=== PATIENT | female | born 1990 | race Caucasian/White ===

== ENCOUNTER 2017-01-18 20:54 | Emergency (ER) | payer SELFPAY ==
[2017-01-18] MEDS ORDERED: NS 0.9% 1000 ML* 1,000 ML IV SCH (22:30)
[2017-01-18 23:05] LABS: Hematocrit 38 % (35-47); Hemoglobin 12.6 g/dl (12.0-16.0); Mean Corpuscular HGB Conc 34 g/dl (31-36); Mean Corpuscular Hemoglobin 25 pg (27-31); Mean Corpuscular Volume 75 fL (80-97); Mean Platelet Volume 9 um3 (7.4-10.4); Red Blood Count 5.03 10^6/ul (4.0-5.4); Red Cell Distribution Width 14 % (10.5-15); White Blood Count 9.7 10^3/ul (3.5-10.8)
[2017-01-18 23:08] LABS: Urine Bilirubin Negative (Negative); Urine Glucose Negative (Negative); Urine Nitrite Negative (Negative)
[2017-01-18 23:10] LABS: Add Diff/Slide Review? Slide Review Added; Comments Flag Yes
[2017-01-18 23:32] LABS: Albumin 4.1 g/dL (3.2-5.2); BUN/Creatinine Ratio 14.1 (8-20); C Reactive Protein 3.9 mg/L (< 5.00); Calcium 9.5 mg/dL (8.6-10.3); EGFR African American 146.6 (>60); Globulin 3.1 g/dL (2-4); Potassium 3.5 mmol/L (3.5-5.0); Total Bilirubin 0.3 mg/dL (0.2-1.0); Total Protein 7.2 g/dL (6.4-8.9)
[2017-01-18 23:46] LABS: Microcytosis 2+
--- NOTE | 2017-01-19 03:08 | ED ---
Christina Sy Thomas, scribed for Saran Davenport MD on 01/18/17 at 2232 . GI/ HPI - HPI Summary HPI Summary: The pt is a 26 y/o F who is 6 weeks and presenting to the ED c/o suprapubic cramping, light spotting, and brown discharge that began two days ago. She denies abdominal pain and only cites a sensation of pressure. The symptoms are aggravated and alleviated by nothing. The patient has treated the symptoms with nothing [employer]. Pt additionally c/o chills, soft stools, and back pain. Pt denies dysuria, fever, and heavy BRB vaginal bleeding. She does not have a history of abdominal surgery. G=3, P=2. Her previous children were born via vaginal delivery. Her OBGYN is Dr. Vasquez in [place]. She has not yet had an appointment with Dr. Vasquez. Her is confirmed via [place] at 6 weeks 6 days. - History of Current Complaint Chief Complaint: EDOBProblems Time Seen by Provider: 01/18/17 22:01 Stated Complaint: 6 WKS PREG/CRAMPING /BLEEDING Hx Obtained From: Patient Onset/Duration: Started Days Ago - onest two days ago, Still Present Vaginal Bleeding Description: Brown Pain Intensity: 0 Location of Pain: Other - There is suprapubic pressure but no pain Associated Signs and Symptoms: Positive: Back Pain, Chills, Other: - Soft stools ; NEVATIVE: heavy BRB vaginal bleeding. Negative: Fever, Dysuria Aggravating Factor(s): Nothing Alleviating Factor(s): Nothing - Allergy/Home Medications Allergies/Adverse Reactions: Allergies Allergy/AdvReac Type Severity Reaction Status Date / Time No Known Allergies Allergy Verified 01/18/17 21:02 PMH/Surg Hx/FS Hx/Imm Hx Previously Healthy: Yes Endocrine/Hematology History: Denies: Hx Diabetes Cardiovascular History: Denies: Hx Hypertension - Surgical History Surgery Procedure, Year, and Place: Tonsillectomy Infectious Disease History: No Infectious Disease History: Denies: Traveled Outside the [place] in Last 30 Days - Family History Known Family History: Negative: Hypertension, Diabetes - Social History Alcohol Use: None Hx Substance Use: Yes Substance Use Type: Reports: Marijuana Hx Tobacco Use: Yes Smoking Status (MU): Former Smoker Review of Systems Positive: Chills. Negative: Fever Positive: Other - Suprapubic cramping, soft stools. Negative: Abdominal Pain Positive: other - Light spotting, brown discharge; NEGATIVE: heavy BRB vaginal bleeding. Negative: dysuria Positive: Other - Back pain All Other Systems Reviewed And Are Negative: Yes Physical Exam Triage Information Reviewed: Yes Vital Signs On Initial Exam: Initial Vitals Temp Pulse Resp BP Pulse Ox 98.1 F 90 16 108/71 98 01/18/17 20:55 01/18/17 20:55 01/18/17 20:55 01/18/17 20:55 01/18/17 20:55 Vital Signs Reviewed: Yes Appearance: Positive: Well-Appearing, No Pain Distress Skin: Positive: Warm, Skin Color Reflects Adequate Perfusion, Dry Head/Face: Positive: Normal Head/Face Inspection Eyes: Positive: EOMI, MARIA EUGENIA ENT: Positive: Normal ENT inspection Neck: Positive: Supple, Nontender Respiratory/Lung Sounds: Positive: Clear to Auscultation, Breath Sounds Present Cardiovascular: Positive: RRR Abdomen Description: Positive: Soft, Other: - Mild tenderness to percussion on the lower back. Mild tenderness in the lower abdomen in the suprapubic region, RLQ, and LLQ. No rebound. Bowel Sounds: Positive: Present Musculoskeletal: Positive: Normal, Strength/ROM Intact Neurological: Positive: Normal, Sensory/Motor Intact, Alert, Oriented to Person Place, Time Psychiatric: Positive: Affect/Mood Appropriate - Anthony Coma Scale Coma Scale Total: 15 Diagnostics - Vital Signs Vital Signs Temp Pulse Resp BP Pulse Ox 01/18/17 20:55 98.1 F 90 16 108/71 98 - Laboratory Lab Results: Lab Results 01/18/17 01/18/17 01/18/17 Range/Units 22:50 22:50 22:50 WBC (3.5-10.8) 10^3/ul RBC (4.0-5.4) 10^6/ul Hgb (12.0-16.0) g/dl Hct (35-47) % MCV (80-97) fL MCH (27-31) pg MCHC (31-36) g/dl RDW (10.5-15) % Plt Count (150-450) 10^3/ul MPV (7.4-10.4) um3 Neut % (Auto) (38-83) % Lymph % (Auto) (25-47) % Blanco % (Auto) (1-9) % Eos % (Auto) (0-6) % Baso % (Auto) (0-2) % Absolute Neuts (auto) (1.5-7.7) 10^3/ul Absolute Lymphs (auto) (1.0-4.8) 10^3/ul Absolute Monos (auto) (0-0.8) 10^3/ul Absolute Eos (auto) (0-0.6) 10^3/ul Absolute Basos (auto) (0-0.2) 10^3/ul Absolute Nucleated RBC 10^3/ul Nucleated RBC % Normal RBC Morphology Microcytosis INR (Anticoag Therapy) 0.98 (0.89-1.11) APTT 29.1 (26.0-36.3) seconds Sodium 136 (133-145) mmol/L Potassium 3.5 (3.5-5.0) mmol/L Chloride 104 (101-111) mmol/L Carbon Dioxide 24 (22-32) mmol/L Anion Gap 8 (2-11) mmol/L BUN 9 (6-24) mg/dL Creatinine 0.64 (0.51-0.95) mg/dL Est GFR ( Amer) 146.6 (>60) Est GFR (Non-Af Amer) 114.0 (>60) BUN/Creatinine Ratio 14.1 (8-20) Glucose 88 (70-100) mg/dL Lactic Acid (0.5-2.0) mmol/L Calcium 9.5 (8.6-10.3) mg/dL Total Bilirubin 0.30 (0.2-1.0) mg/dL AST 12 L (13-39) U/L ALT 13 (7-52) U/L Alkaline Phosphatase 32 L (34-104) U/L C-Reactive Protein 3.90 (< 5.00) mg/L Total Protein 7.2 (6.4-8.9) g/dL Albumin 4.1 (3.2-5.2) g/dL Globulin 3.1 (2-4) g/dL Albumin/Globulin Ratio 1.3 (1-3) Beta HCG, Quant 10763.00 mIU/mL Urine Color Urine Appearance Urine pH (5-9) Ur Specific [place] (1.010-1.030) Urine Protein (Negative) Urine Ketones (Negative) Urine Blood (Negative) Urine Nitrate (Negative) Urine Bilirubin (Negative) Urine Urobilinogen (Negative) Ur Leukocyte Esterase (Negative) Urine Glucose (Negative) Blood Type B Positive 01/18/17 01/18/17 01/18/17 Range/Units 22:50 22:50 22:50 WBC 9.7 (3.5-10.8) 10^3/ul RBC 5.03 (4.0-5.4) 10^6/ul Hgb 12.6 (12.0-16.0) g/dl Hct 38 (35-47) % MCV 75 L (80-97) fL MCH 25 L (27-31) pg MCHC 34 (31-36) g/dl RDW 14 (10.5-15) % Plt Count 227 (150-450) 10^3/ul MPV 9 (7.4-10.4) um3 Neut % (Auto) 71.4 (38-83) % Lymph % (Auto) 21.7 L (25-47) % Blanco % (Auto) 5.3 (1-9) % Eos % (Auto) 1.2 (0-6) % Baso % (Auto) 0.4 (0-2) % Absolute Neuts (auto) 6.9 (1.5-7.7) 10^3/ul Absolute Lymphs (auto) 2.1 (1.0-4.8) 10^3/ul Absolute Monos (auto) 0.5 (0-0.8) 10^3/ul Absolute Eos (auto) 0.1 (0-0.6) 10^3/ul Absolute Basos (auto) 0 (0-0.2) 10^3/ul Absolute Nucleated RBC 0.01 10^3/ul Nucleated RBC % 0.1 Normal RBC Morphology Not Reportable Microcytosis 2+ INR (Anticoag Therapy) (0.89-1.11) APTT (26.0-36.3) seconds Sodium (133-145) mmol/L Potassium (3.5-5.0) mmol/L Chloride (101-111) mmol/L Carbon Dioxide (22-32) mmol/L Anion Gap (2-11) mmol/L BUN (6-24) mg/dL Creatinine (0.51-0.95) mg/dL Est GFR ( Amer) (>60) Est GFR (Non-Af Amer) (>60) BUN/Creatinine Ratio (8-20) Glucose (70-100) mg/dL Lactic Acid 0.6 (0.5-2.0) mmol/L Calcium (8.6-10.3) mg/dL Total Bilirubin (0.2-1.0) mg/dL AST (13-39) U/L ALT (7-52) U/L Alkaline Phosphatase (34-104) U/L C-Reactive Protein (< 5.00) mg/L Total Protein (6.4-8.9) g/dL Albumin (3.2-5.2) g/dL Globulin (2-4) g/dL Albumin/Globulin Ratio (1-3) Beta HCG, Quant mIU/mL Urine Color Yellow Urine Appearance Clear Urine pH 5.0 (5-9) Ur Specific [place] 1.023 (1.010-1.030) Urine Protein Negative (Negative) Urine Ketones 1+ H (Negative) Urine Blood Negative (Negative) Urine Nitrate Negative (Negative) Urine Bilirubin Negative (Negative) Urine Urobilinogen Negative (Negative) Ur Leukocyte Esterase Negative (Negative) Urine Glucose Negative (Negative) Blood Type Result Diagrams: 01/18/17 22:50 01/18/17 22:50 Lab Statement: Any lab studies that have been ordered have been reviewed, and results considered in the medical decision making process. - Additional Comments Diagnostic Additional Comments: [place] . Interpreted by radiologist. Impression: Twin life intrauterine . Gestational age 7 weeks 2 days twin A, 7 weeks 1 day twin B. HR 133 BPM twin A, 1134 BPM twin B. Small subchorionic hemorrhage on the right. No ovarian torsion. Color flow bilaterally. ED physician has interpreted this report and agrees. GIGU Course/Dx - Course Course Of Treatment: Medications reviewed. DISCUSSED RESULTS WITH PATIENT. BLEEDING HAS STOPPED IN ED. PATIENT REPORTS SOME VAGINAL DISCHARGE. WE DISCUSSED A PELVIC AND TESTING FOR INFECTION; PATIENT DECLINES, SHE PREFERS TO F /U WITH HER OBGYN FOR FURTHER EVALUATION. - Diagnoses Provider Diagnoses: Threatened miscarriage Discharge - Discharge Plan Condition: Stable Disposition: HOME Patient Education Materials: Threatened Miscarriage (ED) Referrals: Non Staff,Doctor [Primary Care Provider] - Additional Instructions: FOLLOW UP WITH YOUR OBGYN ON 01/21/17. RETURN TO THE EMERGENCY DEPARTMENT FOR ANY WORSENING OF YOUR CONDITION; FEVER, YOU FEEL ILL, PAIN OR QUESTIONS OR CONCERNS. The documentation as recorded by the Christina alvarado Thomas accurately reflects the service I personally performed and the decisions made by me, Saran Davenport MD.
[2017-01-19 03:42] VITALS: BP 89/43
--- NOTE | 2017-01-19 07:28 | RAD ---
INDICATION: Early with bleeding COMPARISON: None TECHNIQUE: Transabdominal and transvaginal imaging was performed for the purposes of determination FINDINGS: There is an early twin gestation . Based on crown-rump length measurements, twin A is dated at 7 weeks 2 days with a heart rate of 133) and B is dated at 7 weeks 1 day with heart rate of 134. There is a small right-sided subchorionic hemorrhage. The ovaries appear normal. The right ovary measures 4.0 x 2.0 x 2.1 cm and left 0.1 x 1.4 x 1.6 cm. IMPRESSION: EARLY VIABLE TWIN GESTATION. SMALL SUBCHORIONIC HEMORRHAGE.
== END 2017-01-19 03:40 | disposition home or self-care (01) ==
LOC: ED 20:54
DX: O20.0 Threatened abortion (principal); M54.9 Dorsalgia, unspecified; Z3A.01 Less than 8 weeks gestation of pregnancy
CPT/HCPCS: 36415; 76801; 80053; 81003; 83605; 84702; 85025; 85610; 85730; 86140; 86900; 86901; 99282